=== PATIENT | female | born 1975 | race Caucasian/White ===

== ENCOUNTER 2023-01-06 14:27 | Outpatient (AMB) | payer OTHER, SELFPAY ==
--- NOTE | 2023-01-06 14:57 | A.OFFVIS_ITS ---
Intake Intake Visit Reasons: New Pt - right foot pain Intake Note: Alda is a 47 year old female who presents today for a evaluation for her right foot pain. patient reports ongoing pain for 2 years. She states that her heal feels like pins and needs when she is walking, standing and sitting. Hx of PT for her right foot with no relief. Hx of injection in her heal with 2 hours of relief. Allergies latex Allergy (Intermediate, Uncoded 01/06/23 15:02) rash HPI New Pt - right foot pain HPI Details 47-year-old female who presents in the [facility] today, as a new patient, for an evaluation of right foot pain. This is a second opinion due to her being told there was nothing that could be done to give her relief. The patient reports ongoing pain for 2 years, since 2020. She claims her heel feels like ?pins and needles? when she is walking, standing, or sitting. She reports a sharp stabbing pain in addition to a constant pain. She states the pain does not radiate from the heel. She claims she is starting to have pain in the right knee due to compensation of the right foot. Patient has a history of physical therapy for the right foot, with no relief. She reports a history of injections in the heel with 2 hours of relief. She confirms the use of topical cream. [facility] Social History (Updated 01/06/23 @ 15:03 by Sun Lang) Patient Tobacco Use Status: Current everyday Tobacco user Cigarettes Per Day: 0.5 Review of Systems Const All systems reviewed & are unremarkable except as noted in HPI and below Physical Exam Const General: cooperative and no acute distress Orientation/consciousness: patient oriented x3 Resp Effort & Inspection: normal respiratory effort and able to speak in complete sentences Cardio Peripheral pulses: Peripheral pulses 2+ throughout Skin General skin exam: no rashes or lesions noted Neuro General: patient oriented x3 Extrem Other: Right foot: Normal to inspection. No ecchymosis, erythema, or edema. Tenderness to palpation over the calcaneus at the plantar fascia attachment. Patient is able to demonstrate dorsiflexion, plantar flexion, pronation and supination. Negative anterior drawer. Sensation intact. Pedal Pulse intact. Assessment & Plan Assessment & Plan (1) Bone spur of inferior portion of right calcaneus: Code(s): M77.31 - Calcaneal spur, right foot (2) Plantar fasciitis of right foot: Code(s): M72.2 - Plantar fascial fibromatosis (3) Morbid obesity: Code(s): E66.01 - Morbid (severe) obesity due to excess calories Plan Ms. Siddiqui is a 47-year-old female who presents in the office today, as a new patient, for an evaluation of right foot pain. This is a second opinion due to her being told there was nothing that could be done to give her relief. The patient reports ongoing pain for 2 years, since 2020. She claims her heel feels like ?pins and needles? when she is walking, standing, or sitting. She reports a sharp stabbing pain in addition to a constant pain. She states the pain does not radiate from the heel. She claims she is starting to have pain in the right knee due to compensation of the right foot. Patient has a history of physical therapy for the right foot, with no relief. She reports a history of injections in the heel with 2 hours of relief. She confirms the use of topical cream. The patient will be referred for a [facility] specialist due to discuss the small calcaneal bone spur and possibility of removal per her request. Follow up will be PRN, or sooner if needed. X-rays of the right foot obtained while in the office today and reviewed by me, Lou Baum PA-C, revealed small bone spur of the inferior portion of the right calanceus. Orders: Orders XR hand LT min 3V Today M79.643 - Pain in unspecified hand XR foot RT min 3V Today M79.673 - Pain in unspecified foot Patient Instructions: Scribed for Lou Baum PA-C by Cherri Real medical doctor nuclear medicine, on 01/06/2023 at 2:29 pm, EST. Coding Level of Care Code New Pt Level 3 (77489) Diagnoses Bone spur of inferior portion of right calcaneus M77.31 Plantar fasciitis of right foot M72.2 Morbid obesity E66.01
== END 2023-01-06 16:00 | disposition home or self-care (01) ==
PROVIDERS: Visit Provider Physician Assistant
DX: M77.31 Calcaneal spur, right foot (principal); M72.2 Plantar fascial fibromatosis
CPT/HCPCS: 99203

== ENCOUNTER 2023-01-06 14:48 | Outpatient (REF) | payer OTHER, SELFPAY ==
--- NOTE | ~2023-01-06 | XR_ITS ---
EXAMINATION: XR FOOT, RIGHT CLINICAL INFORMATION: Pain COMPARISON: None available. TECHNIQUE: AP, lateral, and oblique views of the right foot. FINDINGS: No acute fracture or dislocation. Mild degenerative changes of the foot with degenerative spurring of the dorsal midfoot, plantar calcaneal spurring and Achilles tendon enthesopathy. Soft tissue swelling about the foot and ankle with few punctate calcifications along the plantar aspect of the foot which may reflect tiny retained foreign bodies. Moderate tibiotalar joint effusion. XR/XR foot RT min 3V IMPRESSION: 1. Soft tissue swelling about the foot and ankle with few punctate calcifications along the plantar aspect of the foot which may reflect tiny retained foreign bodies. 2. Moderate tibiotalar joint effusion. 3. Mild degenerative changes of the foot.
== END 2023-01-06 14:49 | disposition home or self-care (01) ==
LOC: HO.HOSX 14:48
PROVIDERS: Visit Provider Physician Assistant
DX: M77.31 Calcaneal spur, right foot (principal); M72.2 Plantar fascial fibromatosis; E66.01 Morbid (severe) obesity due to excess calories
CPT/HCPCS: 73630